=== PATIENT | male | born 1950 | race African-American/Black ===

== ENCOUNTER 2017-07-18 15:07 | Observation (INO) | payer OTHER ==
[~2017-07-18] VITALS: Ht 188 cm; Wt 134.0 kg
[2017-07-18 15:26] VITALS: BP 126/67; PULSE 44; RESP 20; TEMP 98.3; O2SAT 97
--- NOTE | 2017-07-18 15:30 | PD ---
HPI Chief Complaint: chest pain Time Seen by Provider: 15:29 Travel History International Travel<30 days: No Contact w/Intl Traveler<30days: No Traveled to known affect area: No History of Present Illness HPI 66-year-old male came to the emergency room with history of substernal chest pain down to his epigastrium and right and left subcostal region. Patient says this has been going on for past few days but got worse today. He was seen in [place] and was sent here to be evaluated by EMS. As history of nausea. No history of stent or bypass surgery. Patient was given nitroglycerin at the [place] clinic and EKG done which showed sinus bradycardia. No aggravating or relieving factors identified. [facility] Past Medical History Narrative Medical List of his past medical, surgical, social and family history reviewed from the nursing note. Social History Tobacco Use: Yes Allergies-Medications (Allergen,Severity, Reaction): Coded Allergies: No Known Drug Allergies (Verified Allergy, Unknown, 07/18/17) Comments No known drug allergies. Reported Meds & Prescriptions Reported Meds & Active Scripts Active Reported Viagra (Sildenafil Citrate) 100 Mg Tab 100 Mg PO DAILY PRN Sertraline (Sertraline HCl) 100 Mg Tab 100 Mg PO DAILY Losartan (Losartan Potassium) 25 Mg Tab 25 Mg PO DAILY Hydroxyzine Pamoate 100 Mg Cap 100 Mg PO TID Gabapentin 300 Mg Cap 300 Mg PO TID Folic Acid 400 Mcg Tab 1 Mg PO DAILY B-12 (Cyanocobalamin) 1,000 Mcg Subl 1,000 Mcg SL DAILY Vitamin D3 (Cholecalciferol) 2,000 Unit Cap 2,000 Units PO BID Buspirone (Buspirone HCl) 10 Mg Tab 10 Mg PO TID Baclofen 10 Mg Tab 10 Mg PO TID Atorvastatin (Atorvastatin Calcium) 20 Mg Tab 0.5 Tab PO HS Allopurinol 300 Mg Tab 300 Mg PO DAILY Narrative Medication Awaiting for the nurse to do the medical reconciliation. Review of Systems Except as stated in HPI: all other systems reviewed are Neg Physical Exam Narrative GENERAL: Awake, alert, morbidly obese, mild distress SKIN: Focused skin assessment warm/dry. HEAD: Atraumatic. Normocephalic. EYES: Pupils equal and round. No scleral icterus. No injection or drainage. ENT: No nasal bleeding or discharge. Mucous membranes pink and moist. NECK: Trachea midline. No JVD. CARDIOVASCULAR: Regular rate and rhythm. No murmur appreciated. RESPIRATORY: No accessory muscle use. Clear to auscultation. Breath sounds equal bilaterally. GASTROINTESTINAL: Abdomen soft, non-tender, nondistended. Hepatic and splenic margins not palpable. MUSCULOSKELETAL: No obvious deformities. No clubbing. No cyanosis. No edema. NEUROLOGICAL: Awake and alert. No obvious cranial nerve deficits. Motor grossly within normal limits. Normal speech. PSYCHIATRIC: Appropriate mood and affect; insight and judgment normal. Data Data Last Documented VS Vital Signs Date Time Temp Pulse Resp B/P (MAP) Pulse Ox O2 Delivery O2 Flow Rate FiO2 07/18/17 15:35 44 18 98 Nasal Cannula 2.00 07/18/17 15:35 98.3 126/67 (86) Orders Orders Electrocardiogram (07/18/17 15:47) Basic Metabolic Panel (Bmp) (07/18/17 15:47) Ckmb (Isoenzyme) Profile (07/18/17 15:47) Complete Blood Count With Diff (07/18/17 15:47) Magnesium (Mg) (07/18/17 15:47) Prothrombin Time / Inr (Pt) (07/18/17 15:47) Act Partial Throm Time (Ptt) (07/18/17 15:47) Troponin I (07/18/17 15:47) Chest, Single Ap (07/18/17 15:47) Ecg Monitoring (07/18/17 15:47) Bilateral Bp Monitoring (07/18/17 15:47) Iv Access Insert/Monitor (07/18/17 15:47) Oximetry (07/18/17 15:47) Oxygen Administration (07/18/17 15:47) Aspirin Chew (Aspirin Chew) (07/18/17 16:00) Sodium Chloride 0.9% Flush (Ns Flush) (07/18/17 16:00) Ketorolac Inj (Toradol Inj) (07/18/17 17:45) Admit Order (Ed Use Only) (07/18/17 17:45) Place In Observation (07/18/17 ) Ckmb (Isoenzyme) Profile (07/18/17 21:00) Ckmb (Isoenzyme) Profile (07/19/17 03:00) Troponin I (07/18/17 21:00) Troponin I (07/19/17 03:00) ^ Notify Of These Side Effects (07/18/17 17:42) Sodium Chloride 0.9% Flush (Ns Flush) (07/18/17 21:00) Sodium Chloride 0.9% Flush (Ns Flush) (07/18/17 17:45) Aspirin Ec (Ecotrin Ec) (07/19/17 09:00) Nitroglycerin Sl (Nitrostat Sl) (07/18/17 17:45) Docusate Sodium (Colace) (07/18/17 17:45) Alprazolam (Xanax) (07/18/17 17:45) Ondansetron Inj (Zofran Inj) (07/18/17 17:45) Consult Cardiology (07/18/17 ) Vinegar Maker / Telemetry EUGENIE.Q8H (07/18/17 17:42) Enoxaparin Inj (Lovenox Inj) (07/18/17 20:00) CKMB (07/18/17 21:33) CKMB% (07/18/17 21:33) Labs Laboratory Tests Test 07/18/17 16:00 White Blood Count 6.3 TH/MM3 Red Blood Count 5.00 MIL/MM3 Hemoglobin 11.5 GM/DL Hematocrit 37.2 % Mean Corpuscular Volume 74.4 FL Mean Corpuscular Hemoglobin 23.1 PG Mean Corpuscular Hemoglobin Concent 31.0 % Red Cell Distribution Width 15.9 % Platelet Count 192 TH/MM3 Mean Platelet Volume 8.7 FL Neutrophils (%) (Auto) 57.1 % Lymphocytes (%) (Auto) 30.4 % Monocytes (%) (Auto) 7.4 % Eosinophils (%) (Auto) 4.3 % Basophils (%) (Auto) 0.8 % Neutrophils # (Auto) 3.6 TH/MM3 Lymphocytes # (Auto) 1.9 TH/MM3 Monocytes # (Auto) 0.5 TH/MM3 Eosinophils # (Auto) 0.3 TH/MM3 Basophils # (Auto) 0.1 TH/MM3 CBC Comment DIFF FINAL Differential Comment Prothrombin Time 10.7 SEC Prothromb Time International Ratio 1.0 RATIO Activated Partial Thromboplast Time 26.0 SEC Blood Urea Nitrogen 12 MG/DL Creatinine 1.37 MG/DL Random Glucose 144 MG/DL Calcium Level 8.7 MG/DL Magnesium Level 1.9 MG/DL Sodium Level 141 MEQ/L Potassium Level 4.2 MEQ/L Chloride Level 107 MEQ/L Carbon Dioxide Level 24.6 MEQ/L Anion Gap 9 MEQ/L Estimat Glomerular Filtration Rate 63 ML/MIN Total Creatine Kinase 82 U/L Troponin I LESS THAN 0.02 NG/ML MDM Medical Decision Making Medical Screen Exam Complete: Yes Emergency Medical Condition: Yes Medical Record Reviewed: Yes Interpretation(s) Twelve-lead EKG was reviewed by me. Normal sinus rhythm, normal axis, bradycardia. Heart rate of 42 bpm. Differential Diagnosis ACS, non-STEMI Narrative Course 5:17 PM blood test results are back. Troponin is negative. Chest x-rays negative. And has high risk factor for acute coronary syndrome including age, morbid obesity and hypercholesterolemia. He is significantly bradycardic and I would like to bring him to the medical service for rule out ACS. Procedures EKG Prior to Arrival: No Diagnosis Primary Impression: ACS (acute coronary syndrome) Additional Impression: Bradycardia Admitting Information Admitting Physician Requests: Observation Scripts Glucocom Test Strips (Glucocom Test Strips) 1 Renata Renata EA .ROUTE DIRECTED for Blood Sugar Management, #1 Prov: Jaqui Egan PA-C 07/20/17 Lancets (Lancets) 1 Mis Mis EA .ROUTE DIRECTED for Blood Sugar Management, #1 0 Refills Prov: Jaqui Egan PA-C 07/20/17 Blood Glucose Monitoring W/Device (Glucocom Blood Glucose Mo W/Device) 1 Kit Kit KIT .ROUTE DIRECTED for Blood Sugar Management, #1 Prov: Jaqui Egan PA-C 07/20/17 Amlodipine (Norvasc) 10 Mg Tab 10 MG PO DAILY for Blood Pressure Management, #30 TAB Prov: Jaqui Egan PA-C 07/20/17 Pantoprazole (Pantoprazole) 40 Mg Tab 40 MG PO BID for duodenal ulcer, #60 TAB Prov: Jaqui Egan PA-C 07/20/17 Kathryn Schaeffer MD Jul 18, 2017 15:30
[2017-07-18 15:35] VITALS: BP 126/67; PULSE 44; RESP 18; TEMP 98.3; O2SAT 98
[2017-07-18] MEDS ORDERED: ASPIRIN 81 MG CHEW TAB PO ONE (16:00)
[2017-07-18] MEDS ORDERED: SODIUM CHLORIDE 0.9% FLUSH 10 ML FLUSH IVF PRN (16:00)
--- NOTE | 2017-07-18 16:14 | RADRPT ---
EXAM DATE/TIME: 07/18/2017 16:05 [facility] COMPARISON: No previous studies available for comparison. INDICATIONS : Chest pain. MEDICAL HISTORY : Diabetes mellitus type II. SURGICAL HISTORY : None. ENCOUNTER: Initial ACUITY: 2 weeks PAIN SCORE: 2/10 LOCATION: middle chest. FINDINGS: A single view of the chest demonstrates the lungs to be symmetrically aerated without evidence of mas s, infiltrate or effusion. The cardiomediastinal contours are unremarkable. Osseous structures are intact. CONCLUSION: 1. No acute cardiopulmonary findings. Edgar Antonio MD on July 18, 2017 at 16:12 Board Certified Radiologist. This report was verified electronically.
[2017-07-18 16:24] LABS: AUTOMATED NEUTROPHIL # 3.6 TH/MM3 (1.8-7.7); BASOPHIL # 0.1 TH/MM3 (0-0.2); BASOPHIL % 0.8 % (0.0-2.0); EOSINOPHIL # 0.3 TH/MM3 (0-0.4); EOSINOPHIL % 4.3 % (0.0-4.0); HEMATOCRIT 37.2 % (39.0-51.0); HEMO FLAGS DIFF FINAL; LYMPH % 30.4 % (9.0-44.0); LYMPHOCYTE # 1.9 TH/MM3 (1.0-4.8); MEAN CELL VOLUME 74.4 FL (80.0-100.0); MEAN CORPUSCULAR HEMOGLOBIN 23.1 PG (27.0-34.0); MONO % 7.4 % (0.0-8.0); NEUT % 57.1 % (16.0-70.0); PLATELET COUNT 192 TH/MM3 (150-450); RED CELL DISTRIBUTION WIDTH 15.9 % (11.6-17.2); WHITE BLOOD COUNT 6.3 TH/MM3 (4.0-11.0)
[2017-07-18 16:34] LABS: PROTHROMBIN TIME - PATIENT 10.7 SEC (9.8-11.6)
[2017-07-18 16:47] LABS: ANION GAP 9 MEQ/L (5-15); BICARBONATE 24.6 MEQ/L (21.0-32.0); BLOOD UREA NITROGEN 12 MG/DL (7-18); CHLORIDE 107 MEQ/L (98-107); GLOMERULAR FILTRATION RATE 63 ML/MIN (>89); MAGNESIUM 1.9 MG/DL (1.5-2.5); POTASSIUM 4.2 MEQ/L (3.5-5.1); SODIUM (NA) 141 MEQ/L (136-145)
[2017-07-18 16:59] LABS: CREATINE KINASE 82 U/L (39-308)
[2017-07-18] MEDS ORDERED: NITROGLYCERIN 0.4 MG SL 25 TABS/BTL SL PRN (17:45)
[2017-07-18] MEDS ORDERED: ONDANSETRON HCL 4 MG/2 ML VIAL IV PRN (17:45)
[2017-07-18] MEDS ORDERED: ALPRAZolam 0.25 MG TAB PO PRN (17:45)
[2017-07-18] MEDS ORDERED: KETOROLAC TROMETHAMINE 30 MG/ML (IVP) VIAL IV PUSH ONE (17:45)
[2017-07-18] MEDS ORDERED: SODIUM CHLORIDE 0.9% FLUSH 10 ML FLUSH IV FLUSH PRN (17:45)
[2017-07-18 18:11] VITALS: BP 171/82; PULSE 48; RESP 19; TEMP 98.2; O2SAT 98
[2017-07-18] MEDS ORDERED: BUSP10TA PO (18:20)
[2017-07-18] MEDS ORDERED: ATEN100T7 PO (18:20)
[2017-07-18] MEDS ORDERED: BACL10TA PO (18:20)
[2017-07-18] MEDS ORDERED: TRAM50TA PO (18:20)
[2017-07-18] MEDS ORDERED: HYDR100C PO (18:20)
[2017-07-18] MEDS ORDERED: FOLI400T PO (18:20)
[2017-07-18] MEDS ORDERED: VITA2000 PO (18:20)
[2017-07-18] MEDS ORDERED: VIAG100T PO (18:20)
[2017-07-18] MEDS ORDERED: MELO7.5T4 PO (18:20)
[2017-07-18] MEDS ORDERED: CYAN100025 SL (18:20)
[2017-07-18] MEDS ORDERED: LOSA25TA PO (18:20)
[2017-07-18] MEDS ORDERED: ATOR20TA15 PO (18:20)
[2017-07-18] MEDS ORDERED: ALLO300T2 PO (18:20)
[2017-07-18] MEDS ORDERED: SERT-129 PO (18:20)
[2017-07-18] MEDS ORDERED: GABA300C5 PO (18:20)
--- NOTE | 2017-07-18 18:56 | HHI.HP ---
HPI Service [facility] Primary Care Physician [facility] Admission Diagnosis chest pain, rule out ACS, bradycardia Diagnoses: Chief Complaint: Chest pain Travel History International Travel<30 Days: No Contact w/Intl Traveler <30 Da: No Traveled to Known Affected Are: No History of Present Illness Mr Maldonado is a 66-year-old male with primary medical history of HTN, diabetes, hyperlipidemia, anxiety, gout team in to the hospital for evaluation of chest pain. Patient states that for the past 2 weeks he's been having substernal chest pain starts from the right side approximately on the fifth intercostal space, radiates towards midsternum onto midepigastric region. Patient states that it is being aggravated when he eats or drinks. He denies any associated diaphoresis, nausea, headaches. He thought it was gas. He has been taking Pepto-Bismol to relieve the pain however he states it doesn't work. States that today he has the same pain and [facility] they sent him to the ED for further evaluation. Patient states he took nitroglycerin, and [address] to the ED. He states the nitroglycerin did not relieve reviewed his symptoms. Now he describes his pain as not on the same area but to mid epigastric region. States pain is 2/10, intermittent, pressure, dull, aggravated by food and beverage. Patient also reports that for the past 2 weeks he's been having dark loose stools, one a day at least. He is taking meloxicam for arthritis and he also reports that he drinks 3-4 cans of beer every day, he also drinks wine every other day. States that he stopped drinking wine because he feels that it has aggravated his pain. He reports some dizziness in the past 2 weeks and felt worn out. Patient denies fevers, chills, nausea, vomiting. Denies abdominal cramping, dysuria. Denies shortness of breath or dyspnea. Review of Systems Except as stated in HPI: all other systems reviewed are Neg Past Family Social History Past Medical History Anxiety Hypertension Diabetes Hyperlipidemia Gout Arthritis Past Surgical History Right knee surgery Right foot surgery Left foot surgery Reported Medications Reported Meds & Active Scripts Active Reported Tramadol (Tramadol HCl) 50 Mg Tab 50 Mg PO Q6H PRN Viagra (Sildenafil Citrate) 100 Mg Tab 100 Mg PO DAILY PRN Sertraline (Sertraline HCl) 100 Mg Tab 100 Mg PO DAILY Meloxicam 7.5 Mg Tab 7.5 Mg PO DAILY Losartan (Losartan Potassium) 25 Mg Tab 25 Mg PO DAILY Hydroxyzine Pamoate 100 Mg Cap 100 Mg PO TID Gabapentin 300 Mg Cap 300 Mg PO TID Folic Acid 400 Mcg Tab 1 Mg PO DAILY B-12 (Cyanocobalamin) 1,000 Mcg Subl 1,000 Mcg SL DAILY Vitamin D3 (Cholecalciferol) 2,000 Unit Cap 2,000 Units PO BID Buspirone (Buspirone HCl) 10 Mg Tab 10 Mg PO TID Baclofen 10 Mg Tab 10 Mg PO TID Atorvastatin (Atorvastatin Calcium) 20 Mg Tab 0.5 Tab PO HS Allopurinol 300 Mg Tab 300 Mg PO DAILY Allergies: Coded Allergies: No Known Drug Allergies (Verified Allergy, Unknown, 07/18/17) Active Ordered Medications Current Medications Medications (Trade) Dose Ordered Sig/Antelmo Route Start Time Stop Time Status Last Admin (NS Flush) 2 ml UNSCH PRN IVF 07/18/17 16:00 (NS Flush) 2 ml BID .XX 07/18/17 21:00 UNV (NS Flush) 2 ml UNSCH PRN IV FLUSH 07/18/17 17:45 UNV (Ecotrin Ec) 325 mg DAILY PO 07/19/17 09:00 UNV (Nitrostat Sl) 0.4 mg Q5M PRN SL 07/18/17 17:45 UNV (Colace) 100 mg BID PRN PO 07/18/17 17:45 UNV (Xanax) 0.25 mg Q8H PRN PO 07/18/17 17:45 UNV (Zofran Inj) 4 mg Q6H PRN IV 07/18/17 17:45 UNV (Lovenox Inj) 40 mg Q24H SQ 07/18/17 17:45 UNV Family History Mother had a stroke at the age of 93 Father at the age of 66 from smoking Social History Patient reports drinking wine every other day, beer every day 3-4 cans Denies tobacco use Occasional marijuana use, almost every other day Physical Exam Vital Signs Vital Signs Date Time Temp Pulse Resp B/P (MAP) Pulse Ox O2 Delivery O2 Flow Rate FiO2 07/18/17 18:11 98.2 48 19 171/82 (111) 98 Nasal Cannula 2.00 07/18/17 18:11 48 19 171/82 (111) 98 Nasal Cannula 2.00 07/18/17 18:11 98 Nasal Cannula 2.00 07/18/17 15:35 44 18 98 Nasal Cannula 2.00 07/18/17 15:35 98.3 44 18 126/67 (86) 98 Nasal Cannula 2.00 07/18/17 15:26 98.3 44 20 126/67 (86) 97 Physical Exam GENERAL: This is an obese, well-developed patient, in no apparent distress. SKIN: Warm and dry. HEAD: Normocephalic. No temporal or scalp tenderness. EYES: Pupils equal round and reactive. Extraocular motions intact. No scleral icterus. No injection or drainage. ENT: Nose without bleeding. Throat without erythema. Uvula midline. Airway patent. NECK: Trachea midline. Supple. CARDIOVASCULAR: Bradycardia without murmurs, gallops, or rubs. RESPIRATORY: Clear to auscultation. Breath sounds equal bilaterally. No wheezes , rales, or rhonchi. GASTROINTESTINAL: Abdomen soft, non-tender to palpation - states pain is inside , nondistended. Bowel sounds active 4. MUSCULOSKELETAL: Extremities without clubbing, cyanosis, or edema. Right lower extremity brace in place. NEUROLOGICAL: Awake and alert. Cranial nerves II through XII intact. Motor and sensory grossly within normal limits. Normal speech. Laboratory Laboratory Tests Test 07/18/17 16:00 White Blood Count 6.3 Red Blood Count 5.00 Hemoglobin 11.5 Hematocrit 37.2 Mean Corpuscular Volume 74.4 Mean Corpuscular Hemoglobin 23.1 Mean Corpuscular Hemoglobin Concent 31.0 Red Cell Distribution Width 15.9 Platelet Count 192 Mean Platelet Volume 8.7 Neutrophils (%) (Auto) 57.1 Lymphocytes (%) (Auto) 30.4 Monocytes (%) (Auto) 7.4 Eosinophils (%) (Auto) 4.3 Basophils (%) (Auto) 0.8 Neutrophils # (Auto) 3.6 Lymphocytes # (Auto) 1.9 Monocytes # (Auto) 0.5 Eosinophils # (Auto) 0.3 Basophils # (Auto) 0.1 CBC Comment DIFF FINAL Differential Comment Prothrombin Time 10.7 Prothromb Time International Ratio 1.0 Activated Partial Thromboplast Time 26.0 Blood Urea Nitrogen 12 Creatinine 1.37 Random Glucose 144 Calcium Level 8.7 Magnesium Level 1.9 Sodium Level 141 Potassium Level 4.2 Chloride Level 107 Carbon Dioxide Level 24.6 Anion Gap 9 Estimat Glomerular Filtration Rate 63 Total Creatine Kinase 82 Troponin I LESS THAN 0.02 Result Diagram: 07/18/17 1600 07/18/17 1600 Imaging Last Impressions Chest X-Ray 07/18/17 1547 Signed Impressions: Service Date/Time: , July 18, 2017 16:05 - CONCLUSION: 1. No acute cardiopulmonary findings. MD uJdy Damon VTE Risk Assessment Judy VTE Risk Assessment: Mod/High Risk (score >= 2) Baorini Risk Assessment Model Point Value = 1 Point Value = 2 Point Value = 3 Point Value = 5 Age 41-60 Minor surgery BMI > 25 kg/m2 Swollen legs Varicose veins or History of unexplained or recurrent spontaneous Oral contraceptives or hormone replacement Sepsis (< 1 month) Serious lung disease, including pneumonia (< 1 month) Abnormal pulmonary function Acute myocardial infarction Congestive heart failure (< 1 month) History of inflammatory bowel disease Medical patient at bed rest Age 61-74 Arthroscopic surgery Major open surgery (> 45 min) Laparoscopic surgery (> 45 min) Malignancy Confined to bed (> 72 hours) Immobilizing plaster cast Central venous access Age >= 75 History of VTE Family history of VTE Factor V Leiden Prothrombin [id number] Lupus anticoagulant Anticardiolipin antibodies Elevated serum homocysteine Heparin-induced thrombocytopenia Other congenital or acquired thrombophilia Stroke (< 1 month) Elective arthroplasty Hip, pelvis, or leg fracture Acute spinal cord injury (< 1 month) Prophylaxis Regimen Total Risk Factor Score Risk Level Prophylaxis Regimen 0-1 Low Early ambulation 2 Moderate Order ONE of the following: *Sequential Compression Device (SCD) *Heparin 5000 units SQ BID 3-4 Higher Order ONE of the following medications: *Heparin 5000 units SQ TID *Enoxaparin/Lovenox 40 mg SQ daily (WT < 150 kg, CrCl > 30 mL/min) *Enoxaparin/Lovenox 30 mg SQ daily (WT < 150 kg, CrCl > 10-29 mL/min) *Enoxaparin/Lovenox 30 mg SQ BID (WT < 150 kg, CrCl > 30 mL/min) AND/OR *Sequential Compression Device (SCD) 5 or more Highest Order ONE of the following medications: *Heparin 5000 units SQ TID (Preferred with Epidurals) *Enoxaparin/Lovenox 40 mg SQ daily (WT < 150 kg, CrCl > 30 mL/min) *Enoxaparin/Lovenox 30 mg SQ daily (WT < 150 kg, CrCl > 10-29 mL/min) *Enoxaparin/Lovenox 30 mg SQ BID (WT < 150 kg, CrCl > 30 mL/min) AND *Sequential Compression Device (SCD) Assessment and Plan Problem List: (1) HTN (hypertension) ICD Code: I10 - Essential (primary) hypertension (2) ACS (acute coronary syndrome) ICD Code: I24.9 - Acute ischemic heart disease, unspecified Status: Acute (3) Bradycardia ICD Code: R00.1 - Bradycardia, unspecified Status: Acute Assessment and Plan Mr Maldonado is a 66-year-old male with primary medical history of HTN, diabetes, hyperlipidemia, anxiety, gout team in to the hospital for evaluation of chest pain. Chest Pain, atypical R/O ACS Bradycardia - EKG Sinus bradycardia heart rate of [address] changes noted, trend serial EKG - Chest x-ray showed no acute cardiopulmonary finding - Patient received nitroglycerin 1, 3 baby aspirins. Patient home meds include atenolol/ Chlorthalidone 100mg/25mg daily. - Troponin 0.02, trend serial troponin - Cardiology consult for evaluation - Monitor vital signs. Telemetry. Abdominal Pain ?GERD Dark Stools, ? GIB - Known Alcohol use daily - Hold home meds meloxicam - Pantoprazole daily - Stool for Hemoccult - Check LFTs Alcohol use - [facility] Protocol - Counseled - Folic Acid, Thiamine daily Acute kidney injury - Creatinine 1.37 - Avoid nephrotoxins - Fluid hydration DM 2 - Insulin sliding scale, monitor Accu-Cheks - Monitor for hypoglycemia DVT prop SCD Code Status Full code Discussed Condition With Patient, nursing Physician Certification 2 Midnight Certification Type: Admission for Inpatient Services Order for Inpatient Services The services are ordered in accordance with Medicare regulations or non- Medicare payer requirements, as applicable. In the case of services not specified as inpatient-only, they are appropriately provided as inpatient services in accordance with the 2-midnight benchmark. Estimated LOS (days): 2 days is the estimated time the patient will need to remain in the hospital, assuming treatment plan goals are met and no additional complications. Post-Hospital Plan: Home Medical Decision Making MDM Remarks Attending statement Patient states he has epigastric pain particularly when he eats. He has seen some black tarry stools recently. Reports no bloody stools. Patient denies a history of bradycardia. He denies any lightheadedness. He does drink multiple beers or wine on a daily basis. He denies a history alcohol withdrawal. Sinus bradycardia associate with pain although pain atypical likely related to epigastric pain. Will monitor on telemetry we'll stop home beta vivian atenolol monitor closely. Serial cardiac enzymes will be obtained with cardiology evaluation. History of daily alcohol use. Will place on CIWA protocol. History of black tarry stools- rule out GI bleed. Will stop Lovenox and use SCDs for DVT prophylaxis. The exam, history, and the medical decision making described in the above note were completed with the assistance of the dictating practitioner. I reviewed and agree with the findings presented. I attest that I had a face-to face encounter with the patient on the same day and personally performed and documented my assessment and findings in the medical record. Roberto Cao Jul 18, 2017 18:56 Zaira Freeman MD Jul 18, 2017 20:17
[2017-07-18 19:04] VITALS: BP 171/82
[2017-07-18] MEDS ORDERED: DEXTROSE 50% IN WATER 50 ML VIAL(D50) IV PRN (19:15)
[2017-07-18] MEDS ORDERED: GLUCAGON 1 MG/ML VIAL OTHER PRN (19:15)
[2017-07-18 19:51] VITALS: BP 156/74; PULSE 53; RESP 20; TEMP 98; O2SAT 100
[2017-07-18] MEDS ORDERED: ENOXAPARIN SODIUM 40 MG/0.4 ML SYRINGE SQ SCH (20:00)
[2017-07-18] MEDS ORDERED: FLUMAZENIL 0.5 MG/5 ML VIAL IV PUSH PRN (20:30)
[2017-07-18] MEDS ORDERED: LORazepam 1 MG TAB PO PRN (20:30)
[2017-07-18] MEDS ORDERED: LORazepam 2 MG/ML VIAL IV PUSH PRN ×4 (20:30)
[2017-07-18] MEDS ORDERED: LORazepam 2 MG TAB PO PRN (20:30)
[2017-07-18] MEDS: THIAMINE HCL 100 MG TAB PO SCH (20:43)
[2017-07-18] MEDS: FOLIC ACID 1 MG TAB PO SCH (20:43)
[2017-07-18] MEDS: CHOLECALCIFEROL (VIT D3) 1000 UNIT TAB PO SCH (20:43)
[2017-07-18] MEDS: ATORVASTATIN 10 MG TAB PO SCH (20:43)
[2017-07-18] MEDS: DOCUSATE SODIUM 100 MG CAP PO PRN (20:46)
[2017-07-18] MEDS: PANTOPRAZOLE SOD 40 MG DELAYED RELEASE TAB PO SCH (20:46)
[2017-07-18] MEDS: SODIUM CHLORIDE 0.9% FLUSH 10 ML FLUSH SCH (20:48)
[2017-07-18] MEDS: INSULIN ASPART SUPPLEMENTAL SCALE SQ SCH (20:51)
[2017-07-18 22:16] LABS: ALT (GPT) 56 U/L (12-78); AST (GOT) 27 U/L (15-37)
[2017-07-18 22:20] LABS: ALKALINE PHOSPHATASE 54 U/L (45-117); CREATINE KINASE 109 U/L (39-308); INDIRECT BILIRUBIN 0.2 MG/DL (0.0-0.8); TOTAL BILIRUBIN ADULT 0.3 MG/DL (0.2-1.0)
[2017-07-18 22:33] LABS: CKMB 1.5 NG/ML (0.5-3.6)
[2017-07-18 23:26] VITALS: PULSE 47
[2017-07-18] MEDS: ACETAMINOPHEN/HYDROcodone 325 MG/5 MG TAB PO PRN (23:50)
[2017-07-19] VITALS (12 sets, daily range): BP systolic 147–186; BP diastolic 67–84; PULSE 41–56; RESP 16–19; TEMP 97.6–98.6; O2SAT 100
[2017-07-19 03:58] LABS: HEMATOCRIT 37.6 % (39.0-51.0); MEAN CELL VOLUME 74.5 FL (80.0-100.0); MEAN CORPUSCULAR HEMOGLOBIN 23.1 PG (27.0-34.0); PLATELET COUNT 181 TH/MM3 (150-450); RED BLOOD COUNT 5.05 MIL/MM3 (4.50-5.90); RED CELL DISTRIBUTION WIDTH 16.2 % (11.6-17.2); REVIEW FLAG FINAL; WHITE BLOOD COUNT 7.9 TH/MM3 (4.0-11.0)
[2017-07-19] MEDS: ACETAMINOPHEN/HYDROcodone 325 MG/5 MG TAB PO PRN (04:02)
[2017-07-19 04:18] LABS: ANION GAP 6 MEQ/L (5-15); BICARBONATE 28.4 MEQ/L (21.0-32.0); BLOOD UREA NITROGEN 18 MG/DL (7-18); CHLORIDE 106 MEQ/L (98-107); GLOMERULAR FILTRATION RATE 56 ML/MIN (>89); POTASSIUM 3.9 MEQ/L (3.5-5.1); SODIUM (NA) 140 MEQ/L (136-145)
[2017-07-19 04:19] LABS: CREATINE KINASE 90 U/L (39-308)
[2017-07-19] MEDS: INSULIN ASPART SUPPLEMENTAL SCALE SQ SCH ×4 (06:16→21:00)
--- NOTE | 2017-07-19 08:32 | HHI.PR ---
Subjective Remarks Follow-up for epigastric pain. Patient continues to have pain below both his ribs. She does not feel like is his heart. He had a normal stress test one year ago. He states he's been having dark diarrhea, like coffee grounds. He's been having intermittent episodes of constipation as well. He does take meloxicam daily. He does drink several beers a day and will drink a bottle of wine per week. He does not take anything for stomach acid. He says is been several years since he's had an endoscopy. Objective Vitals Vital Signs Date Time Temp Pulse Resp B/P (MAP) Pulse Ox O2 Delivery O2 Flow Rate FiO2 07/19/17 07:26 97.8 51 16 154/74 (100) 100 07/19/17 05:21 18 07/19/17 04:25 41 07/19/17 03:56 98.3 45 19 180/84 (116) 100 07/19/17 00:39 98.6 47 18 173/75 (107) 100 07/18/17 23:26 47 07/18/17 20:00 18 07/18/17 19:51 98.0 53 20 156/74 (101) 100 07/18/17 19:04 49 18 171/82 (111) 98 Nasal Cannula 2.00 07/18/17 18:11 98.2 48 19 171/82 (111) 98 Nasal Cannula 2.00 07/18/17 18:11 48 19 171/82 (111) 98 Nasal Cannula 2.00 07/18/17 18:11 98 Nasal Cannula 2.00 07/18/17 15:35 44 18 98 Nasal Cannula 2.00 07/18/17 15:35 98.3 44 18 126/67 (86) 98 Nasal Cannula 2.00 07/18/17 15:26 98.3 44 20 126/67 (86) 97 Result Diagram: 07/19/17 0341 07/19/17 0341 Imaging Last Impressions Chest X-Ray 07/18/17 1547 Signed Impressions: Service Date/Time: June 16:05 - CONCLUSION: 1. No acute cardiopulmonary findings. Edgar Antonio MD Objective Remarks GENERAL: Well-developed well-nourished. In no acute distress. SKIN: Warm and dry. No lesions noted. HEENT: Normocephalic. Pupils equal and round. Mucous membranes pink and moist. CARDIOVASCULAR: Regular rate and rhythm. No murmur appreciated. RESPIRATORY: No accessory muscle use. Clear to auscultation. Breath sounds equal bilaterally. GASTROINTESTINAL: Abdomen soft, very mild epigastric TTP, nondistended. Bowel sounds x4. MUSCULOSKELETAL: No obvious deformities. No clubbing or cyanosis. No edema. NEUROLOGICAL: Awake and alert. No focal neurological deficits. Moves upper and lower extremities spontaneously. Normal speech. PSYCHIATRIC: Appropriate mood and affect; insight and judgment normal. A/P Problem List: (1) HTN (hypertension) ICD Code: I10 - Essential (primary) hypertension Status: Chronic (2) Bradycardia ICD Code: R00.1 - Bradycardia, unspecified Status: Acute (3) Atypical chest pain ICD Code: R07.89 - Other chest pain Status: Acute (4) Epigastric abdominal pain ICD Code: R10.13 - Epigastric pain Status: Acute Assessment and Plan Mr Maldonado is a 66-year-old male with primary medical history of HTN, diabetes, hyperlipidemia, anxiety, gout team in to the hospital for evaluation of chest pain. Atypical chest pain: Sounds more GI related. Ruled out ACS per protocol with unremarkable serial cardiac enzymes and EKGs. Reviewed: EKG Sinus bradycardia heart rate of [address] changes noted. Troponin negative 3. Chest x-ray showed no acute cardiopulmonary finding - Continue beta vivian with hold parameters. - Hold off on aspirin with possible GI bleeding - Cardiology consulted - Monitor vital signs. Telemetry. Epigastric pain: NSAID use, alcohol abuse, and reported associated dark stools. Differential includes gastritis, PUD, GI bleed. Reviewed: Hemoglobin stable at 11.7. - Known Alcohol use daily - Hold home meds meloxicam - Pantoprazole daily - Stool for Hemoccult - Consult GI Bradycardia: Heart rate persistently in the 40s. The patient is prescribed atenolol 100 mg daily. -Decrease atenolol dose and add hold parameters. Alcohol use - [facility] Protocol - Counseled - Folic Acid, Thiamine daily Acute kidney injury: Creatinine 1.37, no previous labs for comparison. Creatinine did increase to 1.51 overnight - Avoid nephrotoxins - Fluid hydration - Hold losartan and chlorthalidone DM 2 - Insulin sliding scale, monitor Accu-Cheks - Monitor for hypoglycemia Hypertension: Currently not well controlled -Atenolol, chlorthalidone, and losartan as above -Hydralazine as needed DVT prop SCD Discharge Planning Follow-up specialist recommendations Addendum 1500: Stress test was positive. Cardiology initially recommended catheterization, but recommended evaluating for GI bleeding prior to cath. GI performed EGD which showed duodenal ulcer. Discussed with Dr. hardy, agrees pain seems more GI related, and stress test does appear to be more positive secondary to attenuation rather than ischemia. Dr. hardy recommends continuing PPI and follow up with him in one month for diagnostic catheterization after ulcer has healed, continue statin. Addendum 1600: Discussed with GI, Dr. Mancilla, duodenal ulcer was large and significant, recommends Protonix twice a day and cleared from GI perspective. Addendum 1645: Home BP medications were held due to bradycardia and LOC. BP is not well controlled. Discussed with Dr. Diop, add amlodipine, continue IVF, follow-up BMP and blood pressure in the morning. Patient agreeable. Hopefully discharge planning in the morning. Problem Qualifiers (1) HTN (hypertension): Qualified Codes: I10 - Essential (primary) hypertension Richar Moreno Jul 19, 2017 08:32
--- NOTE | 2017-07-19 08:36 | PD.CONS ---
HPI Service cardiology Consult Requested By Reason for Consult chest pain with bradycardia Primary Care Physician [facility] History of Present Illness 66 yo AAM with HTN, DMII and HLD sent to ED by [place] [facility] yesterday for concerns of epigastric pain. The patient describes a sensation of discomfort to his epigastric region that radiates laterally to both sides of his abdomen exacerbated with eating or drinking. These symptoms progressively worsening over the past 2 weeks. He feels bloated and has noticed dark stools. He took nitro and aspirin without relief. no sob or palpitations. Normal stress testing approximately one year ago per patient. Upon arrival to ED he was found to be bradycardic with HR in mid-low 40's. ECG and troponins unremarkable. (Amy Mclean) Review of Systems Consitutional: DENIES: Fatigue, Fever, Chills, Weight gain, Weight loss Respiratory: DENIES: Cough, Snoring, Shortness of breath, Wheezing, Sputum production Cardiovascular: DENIES: Chest pain, Palpitations, Syncope, Tachycardia Gastrointestinal: DENIES: Nausea, Vomiting, Reflux (Amy Mcelan) Past Family Social History Allergies: Coded Allergies: No Known Drug Allergies (Verified Allergy, Unknown, 07/18/17) Past Medical History Anxiety Hypertension Diabetes Hyperlipidemia Gout Arthritis Past Surgical History Right knee surgery Right foot surgery Left foot surgery Reported Medications Reported Meds & Active Scripts Active Reported Tramadol (Tramadol HCl) 50 Mg Tab 50 Mg PO Q6H PRN Viagra (Sildenafil Citrate) 100 Mg Tab 100 Mg PO DAILY PRN Sertraline (Sertraline HCl) 100 Mg Tab 100 Mg PO DAILY Meloxicam 7.5 Mg Tab 7.5 Mg PO DAILY Losartan (Losartan Potassium) 25 Mg Tab 25 Mg PO DAILY Hydroxyzine Pamoate 100 Mg Cap 100 Mg PO TID Gabapentin 300 Mg Cap 300 Mg PO TID Folic Acid 400 Mcg Tab 1 Mg PO DAILY B-12 (Cyanocobalamin) 1,000 Mcg Subl 1,000 Mcg SL DAILY Vitamin D3 (Cholecalciferol) 2,000 Unit Cap 2,000 Units PO BID Buspirone (Buspirone HCl) 10 Mg Tab 10 Mg PO TID Baclofen 10 Mg Tab 10 Mg PO TID Atorvastatin (Atorvastatin Calcium) 20 Mg Tab 0.5 Tab PO HS Atenolol-Chlorthalidone 100-25 Mg Tab 1 Tab PO DAILY Allopurinol 300 Mg Tab 300 Mg PO DAILY Active Ordered Medications Current Medications Medications (Trade) Dose Ordered Sig/Antelmo Route Start Time Stop Time Status Last Admin (NS Flush) 2 ml BID .XX 07/18/17 21:00 07/18/17 20:48 (NS Flush) 2 ml UNSCH PRN IV FLUSH 07/18/17 17:45 (Nitrostat Sl) 0.4 mg Q5M PRN SL 07/18/17 17:45 (Colace) 100 mg BID PRN PO 07/18/17 17:45 07/18/17 20:46 (Xanax) 0.25 mg Q8H PRN PO 07/18/17 17:45 (Zofran Inj) 4 mg Q6H PRN IV 07/18/17 17:45 (Protonix) 40 mg DAILY PO 07/18/17 20:00 07/18/17 20:46 (Zyloprim) 300 mg DAILY PO 07/19/17 09:00 (Lipitor) 10 mg HS PO 07/18/17 21:00 07/18/17 20:43 (Buspar) 10 mg TID PO 07/19/17 09:00 (Vitamin D3) 2,000 units BID PO 07/18/17 21:00 07/18/17 20:43 (Folate) 1 mg DAILY PO 07/18/17 19:00 07/18/17 20:43 (Neurontin) 300 mg TID PO 07/19/17 09:00 (Zoloft) 100 mg DAILY PO 07/19/17 09:00 (Vitamin B1) 100 mg DAILY PO 07/18/17 19:00 07/18/17 20:43 (D50w (Vial) Inj) 50 ml UNSCH PRN IV 07/18/17 19:15 (Glucagon Inj) 1 mg UNSCH PRN OTHER 07/18/17 19:15 (NovoLOG SUPPLEMENTAL SCALE) 1 ACHS SLIDING SCALE SQ 07/18/17 21:00 ([place] 5-325 Mg) 1 tab Q4H PRN PO 07/18/17 20:30 07/19/17 04:02 (Romazicon Inj) 0.2 mg Q1M PRN IV PUSH 07/18/17 20:30 (Ativan) 1 mg Q4H PRN PO 07/18/17 20:30 (Ativan Inj) 1 mg Q4H PRN IV PUSH 07/18/17 20:30 (Ativan) 2 mg Q2H PRN PO 07/18/17 20:30 (Ativan Inj) 2 mg Q2H PRN IV PUSH 07/18/17 20:30 (Ativan Inj) 2 mg Q1H PRN IV PUSH 07/18/17 20:30 (Ativan Inj) 2 mg Q15M PRN IV PUSH 07/18/17 20:30 (Tenormin) 25 mg DAILY PO 07/19/17 09:00 Family History Mother had a stroke at the age of 93 Father at the age of 66 from smoking Social History Patient reports drinking wine every other day, beer every day 3-4 cans Denies tobacco use Occasional marijuana use, almost every other day (Amy Mclean) Physical Exam Vital Signs Vital Signs Date Time Temp Pulse Resp B/P (MAP) Pulse Ox O2 Delivery O2 Flow Rate FiO2 07/19/17 07:26 97.8 51 16 154/74 (100) 100 07/19/17 05:21 18 07/19/17 04:25 41 07/19/17 03:56 98.3 45 19 180/84 (116) 100 07/19/17 00:39 98.6 47 18 173/75 (107) 100 07/18/17 23:26 47 07/18/17 20:00 18 07/18/17 19:51 98.0 53 20 156/74 (101) 100 07/18/17 19:04 49 18 171/82 (111) 98 Nasal Cannula 2.00 07/18/17 18:11 98.2 48 19 171/82 (111) 98 Nasal Cannula 2.00 07/18/17 18:11 48 19 171/82 (111) 98 Nasal Cannula 2.00 07/18/17 18:11 98 Nasal Cannula 2.00 07/18/17 15:35 44 18 98 Nasal Cannula 2.00 07/18/17 15:35 98.3 44 18 126/67 (86) 98 Nasal Cannula 2.00 07/18/17 15:26 98.3 44 20 126/67 (86) 97 Physical Exam HEAD: Atraumatic. Normocephalic. EYES: Pupils equal and round. ENT: No nasal bleeding or discharge. Mucous membranes pink and moist. NECK: Trachea midline. No JVD. CARDIOVASCULAR: Regular rate and rhythm. No murmur RESPIRATORY: No accessory muscle use. Clear to auscultation. Breath sounds equal bilaterally. GASTROINTESTINAL: Abdomen soft, non-tender, nondistended. MUSCULOSKELETAL: Extremities without clubbing, cyanosis, or edema. No obvious deformities. NEUROLOGICAL: Awake and alert. No obvious cranial nerve deficits.. Normal speech. PSYCHIATRIC: Appropriate mood and affect; insight and judgment normal. Laboratory Laboratory Tests Test 07/18/17 16:00 07/18/17 21:33 07/19/17 03:41 White Blood Count 6.3 7.9 Red Blood Count 5.00 5.05 Hemoglobin 11.5 11.7 Hematocrit 37.2 37.6 Mean Corpuscular Volume 74.4 74.5 Mean Corpuscular Hemoglobin 23.1 23.1 Mean Corpuscular Hemoglobin Concent 31.0 31.0 Red Cell Distribution Width 15.9 16.2 Platelet Count 192 181 Mean Platelet Volume 8.7 8.6 Neutrophils (%) (Auto) 57.1 Lymphocytes (%) (Auto) 30.4 Monocytes (%) (Auto) 7.4 Eosinophils (%) (Auto) 4.3 Basophils (%) (Auto) 0.8 Neutrophils # (Auto) 3.6 Lymphocytes # (Auto) 1.9 Monocytes # (Auto) 0.5 Eosinophils # (Auto) 0.3 Basophils # (Auto) 0.1 CBC Comment DIFF FINAL Differential Comment Prothrombin Time 10.7 Prothromb Time International Ratio 1.0 Activated Partial Thromboplast Time 26.0 Blood Urea Nitrogen 12 18 Creatinine 1.37 1.51 Random Glucose 144 122 Calcium Level 8.7 8.0 Magnesium Level 1.9 Sodium Level 141 140 Potassium Level 4.2 3.9 Chloride Level 107 106 Carbon Dioxide Level 24.6 28.4 Anion Gap 9 6 Estimat Glomerular Filtration Rate 63 56 Total Creatine Kinase 82 109 90 Troponin I LESS THAN 0.02 LESS THAN 0.02 LESS THAN 0.02 Total Bilirubin 0.3 Direct Bilirubin 0.1 Indirect Bilirubin 0.2 Aspartate Amino Transf (AST/SGOT) 27 Alanine Aminotransferase (ALT/SGPT) 56 Alkaline Phosphatase 54 Creatine Kinase MB 1.5 Total Protein 6.2 Albumin 3.3 (Amy Mclean) Result Diagram: 07/19/17 0341 07/19/17 0341 Imaging Last 24 hours Impressions Chest X-Ray 07/18/17 1547 Signed Impressions: Service Date/Time: June 16:05 - CONCLUSION: 1. No acute cardiopulmonary findings. Edgar Antonio MD (Amy Mclean) Assessment and Plan Problem List: (1) Bradycardia ICD Codes: R00.1 - Bradycardia, unspecified Status: Acute (2) HTN (hypertension) ICD Codes: I10 - Essential (primary) hypertension Status: Chronic (3) Atypical chest pain ICD Codes: R07.89 - Other chest pain Status: Acute Assessment and Plan 66 yo M with no prior cardiac history presents with atypical chest pain and bradycardia. atypical chest pain- will assess with lexiscan to rule out ischemia. keep npo. if negative, would consider GI as source. bradycardia- hold atenolol. monitor BP. avoid latanya/arb due to elevated creatinine. (Amy Mclean) Assessment and Plan agree with above (Basil Jeffries MD) Problem Qualifiers (1) HTN (hypertension): Qualified Codes: I10 - Essential (primary) hypertension Amy Mclean Jul 19, 2017 08:36 Basil Jeffries MD Jul 19, 2017 09:47
[2017-07-19] MEDS ORDERED: hydrALAZINE HCL 25 MG TAB PO PRN (08:45)
[2017-07-19] MEDS: SODIUM CHLORIDE 0.9% FLUSH 10 ML FLUSH SCH ×2 (08:57→21:34)
[2017-07-19] MEDS: busPIRone HCL 10 MG TAB PO SCH ×3 (08:58→17:47)
[2017-07-19] MEDS: GABAPENTIN 300 MG CAP PO SCH ×3 (08:59→17:47)
[2017-07-19] MEDS: FOLIC ACID 1 MG TAB PO SCH (08:59)
[2017-07-19] MEDS ORDERED: ASPIRIN EC 325 MG TABEC PO SCH (09:00)
[2017-07-19] MEDS: CHOLECALCIFEROL (VIT D3) 1000 UNIT TAB PO SCH ×2 (09:00→21:56)
[2017-07-19] MEDS: PANTOPRAZOLE SOD 40 MG DELAYED RELEASE TAB PO SCH ×2 (09:00→21:56)
[2017-07-19] MEDS: THIAMINE HCL 100 MG TAB PO SCH (09:00)
[2017-07-19] MEDS: ALLOPURINOL 300 MG TAB PO SCH (09:00)
[2017-07-19] MEDS ORDERED: ATENOLOL 25 MG TAB PO SCH (09:00)
[2017-07-19] MEDS: SERTRALINE HCL 100 MG TAB PO SCH (09:01)
[2017-07-19] MEDS: DOCUSATE SODIUM 100 MG CAP PO PRN (09:07)
[2017-07-19] MEDS: SODIUM CHLOR 0.9% 1000 ML INJ 1,000 ML IV SCH ×2 (09:07→18:26)
[2017-07-19] MEDS ORDERED: REGADENOSON INJ 0.4 MG/5 ML SYR ONE (10:59)
--- NOTE | 2017-07-19 11:15 | EKG ---
Date Performed: 07/18/2017 Time Performed: 15:27:21 PTAGE: 66 years EKG: SINUS BRADYCARDIA NONSPECIFIC T-WAVE ABNORMALITY BORDERLINE ECG INTERPRETATION BASED ON A D EFAULT AGE OF 40 YEARS NO PREVIOUS TRACING DOCTOR: Andreas Martinez Interpretating Date/Time 07/19/2017 11:14:30
[2017-07-19] MEDS ORDERED: ONDANSETRON HCL 4 MG/2 ML VIAL IV PUSH ONE (12:00)
--- NOTE | 2017-07-19 12:12 | RADRPT ---
EXAM DATE/TIME: 07/19/2017 10:38 [place] COMPARISON: No previous studies available for comparison. INDICATIONS : Mid chest pain for one day. Angina. DOSE: 30.2 mCi Tc99m Myoview at stress. 11.0 mCi Tc99m Myoview at rest. 0.4 mg Lexiscan STRESS SYMPTOMS: Flush. EJECTION FRACTION: 53% MEDICAL HISTORY : Hypertension. Renal failure, chronic. SURGICAL HISTORY : Bilateral knee surgery. ENCOUNTER: Initial ACUITY: 1 day PAIN SCALE: 2/10 LOCATION: Bilateral chest TECHNIQUE: The patient underwent pharmacologic stress with infusion of prescribed dose. Continuous ECG tracing was monitored during stress. Gated SPECT imaging was performed after stress and conventional SPECT i maging was performed at rest. The examination was performed on a SPECT/CT scanner, both attenuation and non-corrected datasets were reviewed. FINDINGS: DISTRIBUTION: The maximum perfused segment at stress is in the inferior wall. PERFUSION STUDY: Decreased perfusion in the mid to basilar anterior and lateral fitzgerald. GATED STUDY: There is intact wall motion and thickening without hypokinetic or dyskinetic segments. CONCLUSION: 1. Moderate sized stress-induced perfusion defects involving the mid to basilar anterior/lateral wall s. 2. No significant focal wall motion abnormality with reduced EF of 53%. RISK CATEGORY: Intermediate (1-3% Annual Mortality Rate) Mayur Mcmullen MD on July 19, 2017 at 12:06 Board Certified Radiologist. This report was verified electronically.
--- NOTE | 2017-07-19 13:14 | PD.CONS ---
HPI History of Present Illness This is a 66 year old male iwth a history of hypertension, diabetes, and hyperlipidemia, who [facility]/ epigastric [facility]. He reports that he has been having this discomfort intermittently for the past 2 weeks. It starts as a pressure in his epigastric area and then has a cull ache that radiates to both sides of his upper abdomen and down the center of the abdomen. It is aggravated by po intake, but also comes on its own. He has some reflux/heartburn. He thought it was reflux and has tried gingerale, but states that this has not helped. It is not aggravated by exertion. He reports some mild generalized weakness, but denies any shortness of breath, numbness, or tingling. He also has associated bloating and reports that he has had black tarry stools for the past few weeks. He denies any history of GI bleeding or ulcers in the past. He is on Meloxicam for arthritic pain. (Aleah Marcial) PFSH Past Medical History Anxiety Hypertension Diabetes Hyperlipidemia Gout Arthritis Past Surgical History Right knee surgery Right foot surgery Left foot surgery (Aleah Marcial) Coded Allergies: No Known Drug Allergies (Verified Allergy, Unknown, 07/18/17) Medications Allergies Coded Allergies Type Severity Reaction Last Updated Verified No Known Drug Allergies Allergy Unknown 07/18/17 Yes Active Scripts Medications Dose Route/Sig Max Daily Dose Days Date Category Tramadol (Tramadol HCl) 50 Mg Tab 50 Mg PO Q6H PRN 07/18/17 Reported Viagra (Sildenafil Citrate) 100 Mg Tab 100 Mg PO DAILY PRN 07/18/17 Reported Sertraline (Sertraline HCl) 100 Mg Tab 100 Mg PO DAILY 07/18/17 Reported Meloxicam 7.5 Mg Tab 7.5 Mg PO DAILY 07/18/17 Reported Losartan (Losartan Potassium) 25 Mg Tab 25 Mg PO DAILY 07/18/17 Reported Hydroxyzine Pamoate 100 Mg Cap 100 Mg PO TID 07/18/17 Reported Gabapentin 300 Mg Cap 300 Mg PO TID 07/18/17 Reported Folic Acid 400 Mcg Tab 1 Mg PO DAILY 07/18/17 Reported B-12 (Cyanocobalamin) 1,000 Mcg Subl 1,000 Mcg SL DAILY 07/18/17 Reported Vitamin D3 (Cholecalciferol) 2,000 Unit Cap 2,000 Units PO BID 07/18/17 Reported Buspirone (Buspirone HCl) 10 Mg Tab 10 Mg PO TID 07/18/17 Reported Baclofen 10 Mg Tab 10 Mg PO TID 07/18/17 Reported Atorvastatin (Atorvastatin Calcium) 20 Mg Tab 0.5 Tab PO HS 07/18/17 Reported Atenolol-Chlorthalidone 100-25 Mg Tab 1 Tab PO DAILY 07/18/17 Reported Allopurinol 300 Mg Tab 300 Mg PO DAILY 07/18/17 Reported Family History Mother had a stroke at the age of 93 Father at the age of 66 from smoking Social History Patient reports drinking wine every other day, beer every day 3-4 cans Denies tobacco use Occasional marijuana use, almost every other day (Aleah Marcial) Review of Systems Constitutional: COMPLAINS OF: Fatigue, DENIES: Fever, Chills Respiratory: DENIES: Cough, Shortness of breath Cardiovascular: COMPLAINS OF: Chest pain Gastrointestinal: COMPLAINS OF: Abdominal pain, Black stools, Heartburn, DENIES : Bloody stools, Constipation, Diarrhea, Nausea, Vomiting, Anorexia Musculoskeletal: COMPLAINS OF: Joint pain Integumentary: DENIES: Abnormal pigmentation Hematologic/lymphatic: DENIES: Bruising Neurologic: DENIES: Headache Psychiatric: DENIES: Confusion (Aleah Marcial) GI Exam Vitals I&O Vital Signs Date Time Temp Pulse Resp B/P (MAP) Pulse Ox O2 Delivery O2 Flow Rate FiO2 07/19/17 08:00 47 07/19/17 07:26 97.8 51 16 154/74 (100) 100 07/19/17 05:21 18 07/19/17 04:25 41 07/19/17 03:56 98.3 45 19 180/84 (116) 100 07/19/17 00:39 98.6 47 18 173/75 (107) 100 07/18/17 23:26 47 07/18/17 20:00 18 07/18/17 19:51 98.0 53 20 156/74 (101) 100 07/18/17 19:04 49 18 171/82 (111) 98 Nasal Cannula 2.00 07/18/17 18:11 98.2 48 19 171/82 (111) 98 Nasal Cannula 2.00 07/18/17 18:11 48 19 171/82 (111) 98 Nasal Cannula 2.00 07/18/17 18:11 98 Nasal Cannula 2.00 07/18/17 15:35 44 18 98 Nasal Cannula 2.00 07/18/17 15:35 98.3 44 18 126/67 (86) 98 Nasal Cannula 2.00 07/18/17 15:26 98.3 44 20 126/67 (86) 97 Imaging Last Impressions Myocardial Perfusion Scan Nuc Med 07/19/17 0000 Signed Impressions: Service Date/Time: Wednesday, July 19, 2017 10:38 - CONCLUSION: 1. Moderate sized stress-induced perfusion defects involving the mid to basilar anterior/lateral fitzgerald. 2. No significant focal wall motion abnormality with reduced EF of 53%%. RISK CATEGORY: Intermediate (1-3%% Annual Mortality Rate) Mayur Mcmullen MD Chest X-Ray 07/18/17 1547 Signed Impressions: Service Date/Time: June 16:05 - CONCLUSION: 1. No acute cardiopulmonary findings. Edgar Antonio MD Laboratory Test 07/18/17 16:00 07/18/17 21:33 07/19/17 03:41 White Blood Count 6.3 TH/MM3 7.9 TH/MM3 Red Blood Count 5.00 MIL/MM3 5.05 MIL/MM3 Hemoglobin 11.5 GM/DL 11.7 GM/DL Hematocrit 37.2 % 37.6 % Mean Corpuscular Volume 74.4 FL 74.5 FL Mean Corpuscular Hemoglobin 23.1 PG 23.1 PG Mean Corpuscular Hemoglobin Concent 31.0 % 31.0 % Red Cell Distribution Width 15.9 % 16.2 % Platelet Count 192 TH/MM3 181 TH/MM3 Mean Platelet Volume 8.7 FL 8.6 FL Neutrophils (%) (Auto) 57.1 % Lymphocytes (%) (Auto) 30.4 % Monocytes (%) (Auto) 7.4 % Eosinophils (%) (Auto) 4.3 % Basophils (%) (Auto) 0.8 % Neutrophils # (Auto) 3.6 TH/MM3 Lymphocytes # (Auto) 1.9 TH/MM3 Monocytes # (Auto) 0.5 TH/MM3 Eosinophils # (Auto) 0.3 TH/MM3 Basophils # (Auto) 0.1 TH/MM3 CBC Comment DIFF FINAL Differential Comment Prothrombin Time 10.7 SEC Prothromb Time International Ratio 1.0 RATIO Activated Partial Thromboplast Time 26.0 SEC Blood Urea Nitrogen 12 MG/DL 18 MG/DL Creatinine 1.37 MG/DL 1.51 MG/DL Random Glucose 144 MG/DL 122 MG/DL Calcium Level 8.7 MG/DL 8.0 MG/DL Magnesium Level 1.9 MG/DL Sodium Level 141 MEQ/L 140 MEQ/L Potassium Level 4.2 MEQ/L 3.9 MEQ/L Chloride Level 107 MEQ/L 106 MEQ/L Carbon Dioxide Level 24.6 MEQ/L 28.4 MEQ/L Anion Gap 9 MEQ/L 6 MEQ/L Estimat Glomerular Filtration Rate 63 ML/MIN 56 ML/MIN Total Creatine Kinase 82 U/L 109 U/L 90 U/L Troponin I LESS THAN 0.02 NG/ML LESS THAN 0.02 NG/ML LESS THAN 0.02 NG/ML Total Bilirubin 0.3 MG/DL Direct Bilirubin 0.1 MG/DL Indirect Bilirubin 0.2 MG/DL Aspartate Amino Transf (AST/SGOT) 27 U/L Alanine Aminotransferase (ALT/SGPT) 56 U/L Alkaline Phosphatase 54 U/L Creatine Kinase MB 1.5 NG/ML Total Protein 6.2 GM/DL Albumin 3.3 GM/DL Physical Examination HEENT: Normocephalic; atraumatic; no jaundice. CHEST: CTA CARDIAC: RRR ABDOMEN: Soft, mild bloated, nontender; no hepatosplenomegaly; bowel sounds are present in all four quadrants. EXTREMITIES: No clubbing, cyanosis, or edema. SKIN: Normal; no rash; no jaundice. CONVEYOR WEIGHER OPERATOR: No focal deficits; alert and oriented times three. (Aleah MarcialP) Assessment and Plan Plan ASSESSMENT: - Epigastric pain. 2 week hx of epigastric pain/pressure in epigastric area radiating to bilateral upper abdomen and down middle of abdomen. No n/v. (+) Bloating. (+) Heartburn. (+) Melena x 2 weeks. No prior hx of PUD. HH stable. D/W Dr. Jeffries, will plan for EGD prior to Cardiac catheterization to r/o ulcers/gi bleeding prior to patient possibly needing antiplatelets if stent placed - Melena x 2 weeks. EGD, PPI. - C.P with abnormal stress test. Stress test with moderate sized stress- induced perfusion defects infolving the mid to basilar anterior/lateral fitzgerald. No significant focal wall motion abnormality with reduced EF of 53%. - HTN, DM, Hyperlipidemia. Per attending. PLAN: - Plan for egd - Obtain consents - NPO - PPI - Monitor HH - Plan is for cardiac catheterization after EGD - Pt seen and examined by Dr. Mancilla and myself and this note is written on his behalf (Aleah Marcial) Physician Comments Seen and examined, plan for Cath today and possible use [facility] afterward, will schedule EGD today. Risk, benefits and possible complications discussed with the patient, will proceed now. Further recommendations to follow. (Cooper Mancilla MD) Aleah Marcial Jul 19, 2017 13:14 Cooper Mancilla MD Jul 19, 2017 14:24
[2017-07-19] MEDS ORDERED: PROPOFOL 200 MG/20 ML AMP IV ONE (14:42)
--- NOTE | 2017-07-19 14:52 | GIPROC ---
[facility] [address] [facility]. [facility], [id number] EGD PROCEDURE REPORT EXAM DATE: 07/19/2017 PATIENT NAME: Christiano Maldonado MR #: [id number] BIRTHDATE: 1950 ATTENDING: Cooper Mancilla MD ORDER #: [id number] BLOCK INSPECTOR: Tata Castillo and Bang Clement STATUS: inpatient INDICATIONS: The patient is a 66 yr old male here for an EGD due to epigastric abdominal pain PROCEDURE PERFORMED: EGD w/ biopsy MEDICATIONS: Per Anesthesia and None. TOPICAL ANESTHETIC: none CONSENT: The patient understands the risks and benefits of the procedure and understands that these risks include, but are not limited to: sedation, allergic reaction, infection, perforation and/or bleeding. Alternative means of evaluation and treatment include, among others: physical exam, x-rays, and/or surgical intervention. The patient elects to proceed with this endoscopic procedure. medical equipment was checked for proper function. Hand hygiene and appropriate measures for infection prevention was taken. After the risks, benefits and alternatives of the procedure were thoroughly explained, Informed consent was verified, confirmed and timeout was successfully executed by the treatment team. The patient was anesthetized with topical anesthesia and the MynewMDax [id number] endoscope was introduced through the mouth and advanced to the second portion of the duodenum. Retroflexion was performed and was normal The gastroscope was then slowly withdrawn and removed. ESOPHAGUS: The esophagus was otherwise normal. STOMACH: There was moderate and erosive gastritis in the gastric antrum. Multiple biopsies were performed using cold forceps. Sample sent for histology. DUODENUM: A large non-bleeding, round, deep and clean-based ulcer with surrounding edema was found in the duodenal bulb. ADVERSE EVENTS: There were no complications. IMPRESSIONS: 1. The esophagus was otherwise normal 2. There was gastritis in the gastric antrum; multiple biopsies were performed 3. Large ulcer was found in the duodenal bulb 4. Retroflexion was performed and was normal RECOMMENDATIONS: 1. Await biopsy results. Biopsy results will not be ready for 7-10 days. If you don't hear from us in two weeks, call our office for biopsy results. 2. Continue PPI 3. Pelon to use Anti Platelates cautiously if absouletly neexded with high dose PPI PATIENT CONDITION: stable DISPOSITION: Observation REPEAT EXAM: NONE Cooper Mancilla MD eSigned: Cooper Mancilla MD 07/19/2017 2:51 PM cc: PATIENT NAME: Christiano Maldonado MR#: [id number]
[2017-07-19] MEDS ORDERED: DO NOT ADM ANY ANTICOAGULANT DRUGS PRN (14:53)
[2017-07-19] MEDS: ATORVASTATIN 10 MG TAB PO SCH (21:56)
[2017-07-20] MEDS: SODIUM CHLOR 0.9% 1000 ML INJ 1,000 ML IV SCH (03:11)
[2017-07-20 04:04] VITALS: PULSE 51
[2017-07-20 04:09] VITALS: BP 140/66; PULSE 53; RESP 18; TEMP 98; O2SAT 99
[2017-07-20] MEDS: INSULIN ASPART SUPPLEMENTAL SCALE SQ SCH (07:00)
[2017-07-20 07:26] LABS: BICARBONATE 23.2 MEQ/L (21.0-32.0); POTASSIUM 4.1 MEQ/L (3.5-5.1)
[2017-07-20] MEDS ORDERED: PANT40TA3 PO (07:47)
[2017-07-20] MEDS ORDERED: AMLO10 PO (07:47)
--- NOTE | 2017-07-20 07:48 | HHI.DCPOC ---
Discharge Care Plan Diagnosis: (1) Duodenal bulb ulcer (2) Epigastric abdominal pain (3) HTN (hypertension) Goals to Promote Your Health * To prevent worsening of your condition and complications * To maintain your health at the optimal level Directions to Meet Your Goals Take your medications as prescribed Follow your dietary instruction Follow activity as directed Keep your appointments as scheduled Take your immunizations and boosters as scheduled If your symptoms worsen call your PCP, if no PCP go to Urgent Care Center or Emergency Room Smoking is Dangerous to Your Health. Avoid second hand smoke Call the 24-hour hour crisis hotline for domestic abuse at Jaqui Egan PA-C Jul 20, 2017 7:47 am
[2017-07-20 08:00] VITALS: PULSE 48
[2017-07-20] MEDS ORDERED: GLUCTES12 (08:15)
[2017-07-20] MEDS ORDERED: LANCETS1 MI1 (08:15)
[2017-07-20] MEDS ORDERED: GLUCKIT15 (08:15)
--- NOTE | 2017-07-20 08:18 | HHI.PR ---
Subjective Remarks Follow up for duodenal bulb ulcer, gastritis, uncontrolled hypertension, LOC. The patient reports feeling well this morning. Epigastric pain much improved. Denies any nausea/vomiting/diarrhea. He tolerated oral intake yesterday. Discussed his diabetes since no diabetic medications are listed on his home meds. He says his PCP at the [facility] took him off metformin and he believes he was started on another medication however cannot recall the name of the med ( possibly glipizide). He does not have a glucometer. He was instructed to monitor daily blood glucoses and reports to PCP; patient verbalizes understanding. He feels ready for discharge. Objective Vitals Vital Signs Date Time Temp Pulse Resp B/P (MAP) Pulse Ox O2 Delivery O2 Flow Rate FiO2 07/20/17 04:09 98.0 53 18 140/66 (90) 99 07/20/17 04:04 51 07/19/17 23:44 50 07/19/17 23:09 97.6 52 18 151/76 (101) 100 07/19/17 21:38 98.1 50 16 150/73 (98) 100 07/19/17 19:44 54 07/19/17 18:26 147/67 (93) 07/19/17 16:27 186/82 (116) 07/19/17 15:45 98.3 56 16 100 07/19/17 15:15 44 16 131/55 (80) 100 Nasal Cannula 2 07/19/17 15:00 43 16 124/62 (82) 100 Nasal Cannula 2 07/19/17 14:53 97.5 45 16 131/60 (83) 99 Nasal Cannula 2 07/19/17 08:00 47 I/O 07/19/17 07/19/17 07/19/17 07/20/17 07/20/17 07/20/17 07:00 15:00 23:00 07:00 15:00 23:00 Intake Total 350 ml 50 ml 1800 ml Balance 350 ml 50 ml 1800 ml Intake Oral 50 ml IV Total 1800 ml Other 350 ml Result Diagram: 07/19/17 0341 07/20/17 0530 Imaging Last Impressions Myocardial Perfusion Scan Nuc Med 07/19/17 0000 Signed Impressions: Service Date/Time: Wednesday, July 19, 2017 10:38 - CONCLUSION: 1. Moderate sized stress-induced perfusion defects involving the mid to basilar anterior/lateral fitzgerald. 2. No significant focal wall motion abnormality with reduced EF of 53%%. RISK CATEGORY: Intermediate (1-3%% Annual Mortality Rate) Mayur Mcmullen MD Chest X-Ray 07/18/17 1547 Signed Impressions: Service Date/Time: June 16:05 - CONCLUSION: 1. No acute cardiopulmonary findings. Edgar Antonio MD Objective Remarks GENERAL: Well-nourished, well-developed middle aged male patient in [facility]. SKIN: Warm and dry. No rash. HEENT: Normocephalic. Atraumatic.Pupils equal and round. Mucous membranes pink and moist. CARDIOVASCULAR: Regular rate and rhythm. S1, S2 noted. No murmur appreciated. RESPIRATORY: No accessory muscle use. Clear to auscultation. Breath sounds equal bilaterally. GASTROINTESTINAL: Abdomen soft, non-tender, nondistended. Normoactive bowel sounds x4. MUSCULOSKELETAL: No obvious deformities. Extremities without clubbing, cyanosis , or edema. NEUROLOGICAL: Awake and alert. No obvious cranial nerve deficits. Motor grossly within normal limits. Normal speech. PSYCHIATRIC: Appropriate mood and affect; insight and judgment normal. Medications and IVs Current Medications Medications (Trade) Dose Ordered Sig/Antelmo Route Start Time Stop Time Status Last Admin (NS Flush) 2 ml BID .XX 07/18/17 21:00 07/19/17 21:34 (NS Flush) 2 ml UNSCH PRN IV FLUSH 07/18/17 17:45 (Nitrostat Sl) 0.4 mg Q5M PRN SL 07/18/17 17:45 (Colace) 100 mg BID PRN PO 07/18/17 17:45 07/19/17 09:07 (Xanax) 0.25 mg Q8H PRN PO 07/18/17 17:45 (Zofran Inj) 4 mg Q6H PRN IV 07/18/17 17:45 (Zyloprim) 300 mg DAILY PO 07/19/17 09:00 07/19/17 09:00 (Lipitor) 10 mg HS PO 07/18/17 21:00 07/19/17 21:56 (Buspar) 10 mg TID PO 07/19/17 09:00 07/19/17 17:47 (Vitamin D3) 2,000 units BID PO 07/18/17 21:00 07/19/17 21:56 (Folate) 1 mg DAILY PO 07/18/17 19:00 07/19/17 08:59 (Neurontin) 300 mg TID PO 07/19/17 09:00 07/19/17 17:47 (Zoloft) 100 mg DAILY PO 07/19/17 09:00 07/19/17 09:01 (Vitamin B1) 100 mg DAILY PO 07/18/17 19:00 07/19/17 09:00 (D50w (Vial) Inj) 50 ml UNSCH PRN IV 07/18/17 19:15 (Glucagon Inj) 1 mg UNSCH PRN OTHER 07/18/17 19:15 (NovoLOG SUPPLEMENTAL SCALE) 1 ACHS SLIDING SCALE SQ 07/18/17 21:00 ([place] 5-325 Mg) 1 tab Q4H PRN PO 07/18/17 20:30 07/19/17 04:02 (Romazicon Inj) 0.2 mg Q1M PRN IV PUSH 07/18/17 20:30 (Ativan) 1 mg Q4H PRN PO 07/18/17 20:30 (Ativan Inj) 1 mg Q4H PRN IV PUSH 07/18/17 20:30 (Ativan) 2 mg Q2H PRN PO 07/18/17 20:30 (Ativan Inj) 2 mg Q2H PRN IV PUSH 07/18/17 20:30 (Ativan Inj) 2 mg Q1H PRN IV PUSH 07/18/17 20:30 (Ativan Inj) 2 mg Q15M PRN IV PUSH 07/18/17 20:30 Sodium Chloride 1,000 ml @ 100 mls/hr Q10H IV 07/19/17 08:30 07/20/17 03:11 (Apresoline) 25 mg Q8HR PRN PO 07/19/17 08:45 Miscellaneous Information ALL NURSING DEPARTME... UNSCH PRN .XX 07/19/17 14:53 07/20/17 14:52 (Protonix) 40 mg BID PO 07/19/17 21:00 07/19/17 21:56 (Norvasc) 10 mg DAILY PO 07/19/17 17:45 07/19/17 17:47 A/P Problem List: (1) HTN (hypertension) ICD Code: I10 - Essential (primary) hypertension Status: Chronic (2) Bradycardia ICD Code: R00.1 - Bradycardia, unspecified Status: Acute (3) Atypical chest pain ICD Code: R07.89 - Other chest pain Status: Acute (4) Epigastric abdominal pain ICD Code: R10.13 - Epigastric pain Status: Acute Assessment and Plan 66-year-old male with primary medical history of HTN, diabetes, hyperlipidemia, anxiety, gout team in to the hospital for evaluation of chest pain. Atypical chest pain: Sounds more GI related. Ruled out ACS per protocol with unremarkable serial cardiac enzymes and EKGs. Reviewed: EKG Sinus bradycardia heart rate of [address] changes noted. Troponin negative 3. CXR showed no acute cardiopulmonary findings. - Unable to tolerate BB with bradycardia - Hold off on aspirin with possible GI bleeding - Cardiology consulted - Monitor vital signs. Telemetry. - Nuclear Stress test showed moderate sized stress induced perfusion defects ; however per Dr. Jeffries, pain seems more GI related and stress test does appear to be more positive secondary to attenuation rather than ischemia. - Dr. Jeffries recommends continuing PPI and follow up with him in one month for diagnostic catheterization after ulcer has healed, continue statin. Epigastric pain: NSAID use, alcohol abuse, and reported associated dark stools. Differential includes gastritis, PUD, GI bleed. Known Alcohol use daily Reviewed: Hemoglobin stable at 11.7. - Discontinue home med meloxicam - Protonix bid - Consult GI - EGD showed large duodenal bulb ulcer, gastritis - GI recommends Protonix bid, cleared for discharge, patient tolerated oral intake Bradycardia: Heart rate persistently in the 40s. The patient is prescribed atenolol 100 mg daily. -Discontinued atenolol, HR improving Alcohol use - [facility] Protocol - Counseled on cessation - Folic Acid, Thiamine daily Acute kidney injury: Creatinine 1.37, no previous labs for comparison. Creatinine did increase to 1.51 overnight - Avoid nephrotoxins - Given IV Fluid hydration - Held losartan and chlorthalidone - LOC resolved, Cr 0.99 DM 2 - Insulin sliding scale, monitor Accu-Cheks - Monitor for hypoglycemia - provided prescription for glucometer, instructed to monitor blood glucose, keep log, and report to PCP Hypertension: Currently not well controlled -Atenolol held secondary to bradycardia; chlorthalidone and losartan -Hydralazine as needed -started on norvasc DVT prop SCD Discharge Planning Discharge patient to home Condition on discharge: Improved Heart Healthy/Diabetic Diet as tolerated Ad Tonia activity Rx written: norvasc 10mg daily, protonix 40mg bid, glucometer/lancets/test strips Follow-up with primary care physician at the [facility] within 1 week Follow up with gastroenterology in 1 week Follow up with cardiology Dr. Jeffries in 2 weeks Problem Qualifiers (1) HTN (hypertension): Qualified Codes: I10 - Essential (primary) hypertension Jaqui Egan PA-C Jul 20, 2017 8:18 am
[2017-07-20 08:43] VITALS: BP 142/60; PULSE 68; RESP 18; TEMP 97.9; O2SAT 96
[2017-07-20] MEDS: SODIUM CHLORIDE 0.9% FLUSH 10 ML FLUSH SCH (09:00)
[2017-07-20] MEDS: ALLOPURINOL 300 MG TAB PO SCH (09:19)
[2017-07-20] MEDS: THIAMINE HCL 100 MG TAB PO SCH (09:19)
[2017-07-20] MEDS: GABAPENTIN 300 MG CAP PO SCH (09:19)
[2017-07-20] MEDS: CHOLECALCIFEROL (VIT D3) 1000 UNIT TAB PO SCH (09:20)
[2017-07-20] MEDS: busPIRone HCL 10 MG TAB PO SCH (09:20)
[2017-07-20] MEDS: FOLIC ACID 1 MG TAB PO SCH (09:20)
[2017-07-20] MEDS: PANTOPRAZOLE SOD 40 MG DELAYED RELEASE TAB PO SCH (09:23)
[2017-07-20] MEDS: SERTRALINE HCL 100 MG TAB PO SCH (09:23)
== END 2017-07-20 11:53 | disposition home or self-care (01) ==
LOC: NEPC 15:07 → NEDA 17:47 → NEPGCP 19:01
PROVIDERS: ADMIT Family Medicine; ATTEND Family Medicine
DX: R07.89 Other chest pain (principal); K26.9 Duodenal ulcer, unspecified as acute or chronic, without hemorrhage or perforation; K29.50 Unspecified chronic gastritis without bleeding; B96.81 Helicobacter pylori [H. pylori] as the cause of diseases classified elsewhere; R00.1 Bradycardia, unspecified; R42 Dizziness and giddiness; I20.9 Angina pectoris, unspecified; I12.9 Hypertensive chronic kidney disease with stage 1 through stage 4 chronic kidney disease, or unspecified chronic kidney disease; E11.22 Type 2 diabetes mellitus with diabetic chronic kidney disease; N18.9 Chronic kidney disease, unspecified; N17.9 Acute kidney failure, unspecified; K59.00 Constipation, unspecified; M10.9 Gout, unspecified; G47.30 Sleep apnea, unspecified; E78.5 Hyperlipidemia, unspecified; E78.00 Pure hypercholesterolemia, unspecified; K21.9 Gastro-esophageal reflux disease without esophagitis; F41.9 Anxiety disorder, unspecified; M19.90 Unspecified osteoarthritis, unspecified site; F12.90 Cannabis use, unspecified, uncomplicated; E66.01 Morbid (severe) obesity due to excess calories; Z68.37 Body mass index [BMI] 37.0-37.9, adult; Z72.0 Tobacco use; Z79.899 Other long term (current) drug therapy
CPT/HCPCS: 00740; 43239; 71010; 78452; 80048; 80076; 82550; 82552; 82948; 83735; 84484; 85025; 85027; 85610; 85730; 88305; 88312; 93005; 93017; 96361; 96374; 99285; A9502; G0378; J1885; J2405; J2785; J7030